=== PATIENT | male | born 1935 | race Caucasian/White ===

== ENCOUNTER 2020-01-17 10:06 | Inpatient (IN) | payer MEDICARE ==
--- NOTE | 2020-01-17 15:02 | HP ---
HISTORY OF PRESENT ILLNESS: Darío is an 84-year-old gentleman who underwent a left total hip replacement on the 01/[address] Oreilly at the [facility]. He states that surgery went well. He does not have any complications status post surgery. He states he has been up ambulating, going to the bathroom without any difficulty with ambulation. He states he has a little bit of discomfort to the incision site. Otherwise, he has not noticed any drainage. No increased warmth to that side. Overall, he states he is feeling well. PAST MEDICAL HISTORY: 1. History of actinic keratoses. 2. Arthritis. 3. Bradycardia. 4. Coronary artery disease. 5. Hyperlipidemia. 6. Hypertension. 7. Knee osteoarthritis. 8. Left hip osteoarthritis. 9. Prostatic hypertrophy. 10.Type 2 diabetes. PAST SURGICAL HISTORY: 1. Appendectomy. 2. Cardiac catheterization with stent placement. 3. Cholecystectomy. 4. Pacemaker insertion. 5. Stomach surgery. 6. Total hip replacement. SOCIAL HISTORY: The patient resides in [place], [place] with his . He is retired. He is a nonsmoker. FAMILY HISTORY: Noncontributory. REVIEW OF SYSTEMS: Patient denies any headaches. No fevers. Does state chills once in a while. No nausea. No vomiting. No shortness of breath. No chest pain. No palpitations. No belly pain. States last bowel movement was 3 days ago. Denies any abdominal discomfort. He states he is still passing gas without any complications. No urinary complaints presently. PHYSICAL EXAMINATION: VITAL SIGNS: Blood pressure is 136/78, 98% on room air, pulse is 70, respirations 20, and temperature 99. GENERAL: A pleasant, cooperative male, who is sitting in a chair, does not really appear to be in any acute distress nor acutely ill. HEENT: Grossly unremarkable. Head is normocephalic and atraumatic. Eyes clear. Conjunctivae are clear. Nasal mucosa is pink and moist. Speech was fluent. NECK: Supple. Trachea is midline. LUNGS: Clear to auscultation. I do not hear any adventitious sounds. CARDIAC: Regular rate, regular rhythm. No murmurs are noted. ABDOMEN: Soft. Bowel sounds are present. Normoactive. No organomegaly. No guarding or rigidity. EXTREMITIES: Examination of the left hip, does have a bandage in place. However, I do not feel any increase in warmth. No erythema is present. No drainage is present. Mild tenderness with palpation along the incision line. Pedal pulses are present and equal bilaterally. No pedal edema is noted. PSYCHIATRIC: He is alert and oriented to person, place, and time. ASSESSMENT: STATUS POST LEFT HIP REPLACEMENT. PLAN: The patient [facility] be [facility]. We will go ahead and get PT. We did start Flexeril 10 mg t.i.d. as needed for muscle spasms. We will give him docusate sodium 100 mg twice daily to help with bowel movements. Ferrous sulfate 325 mg p.o. daily and Percocet 5/325, 1 to 2 tablets every 4 to 6 hours as needed. We will put him on Lovenox as he is high risk. PT again is to evaluate and treat at this time. The patient is in complete agreement. BRAULIO/CHAS /[id number]
[2020-01-17] MEDS: Enoxaparin 30 MG/0.3 ML Syringe SUBCUT SCH (15:24)
[2020-01-17] MEDS: metFORMIN 500 MG Tab PO SCH (17:03)
[2020-01-17] MEDS: Docusate Sodium 100 MG Cap PO SCH (19:15)
[2020-01-17] MEDS: Acetaminophen/oxyCODONE 325-5 MG Tab PO PRN (19:15)
[2020-01-18] MEDS: Acetaminophen/oxyCODONE 325-5 MG Tab PO PRN ×3 (02:55→18:27)
[2020-01-18] MEDS: metFORMIN 500 MG Tab PO SCH ×2 (07:42→17:57)
[2020-01-18] MEDS: Aspirin 81 MG Tab.Chew PO SCH (07:43)
[2020-01-18] MEDS: Ferrous Sulfate 324 MG Tab.EC PO SCH (07:43)
[2020-01-18] MEDS: Hydrochlorothiazide 25 MG Tab PO SCH (07:44)
[2020-01-18] MEDS: atorvaSTATin 20 MG Tab PO SCH (07:44)
[2020-01-18] MEDS: amLODIPine 10 MG Tab PO SCH (07:44)
[2020-01-18] MEDS: Docusate Sodium 100 MG Cap PO SCH ×2 (07:45→20:05)
[2020-01-18] MEDS ORDERED: Non-Formulary Medication 1 Each (Potassium Gluconate [Potassium] 99 MG) PO SCH (08:00)
[2020-01-18] MEDS: Enoxaparin 30 MG/0.3 ML Syringe SUBCUT SCH (13:20)
[2020-01-19] MEDS: Acetaminophen/oxyCODONE 325-5 MG Tab PO PRN ×4 (01:38→22:15)
[2020-01-19] MEDS: Aspirin 81 MG Tab.Chew PO SCH (07:26)
[2020-01-19] MEDS: amLODIPine 10 MG Tab PO SCH (07:27)
[2020-01-19] MEDS: metFORMIN 500 MG Tab PO SCH ×2 (07:27→17:05)
[2020-01-19] MEDS: Ferrous Sulfate 324 MG Tab.EC PO SCH (07:27)
[2020-01-19] MEDS: Hydrochlorothiazide 25 MG Tab PO SCH (07:28)
[2020-01-19] MEDS: Docusate Sodium 100 MG Cap PO SCH ×2 (07:28→20:27)
[2020-01-19] MEDS: atorvaSTATin 20 MG Tab PO SCH (07:28)
[2020-01-19] MEDS ORDERED: Magnesium Citrate Solution 296 ML Bottle PO ONE (09:43)
[2020-01-19] MEDS ORDERED: Polyethylene Glycol 3350 Powder 17 GM Packet PO PRN (09:57)
[2020-01-19] MEDS: Enoxaparin 30 MG/0.3 ML Syringe SUBCUT SCH (13:22)
[2020-01-19] MEDS: Cyclobenzaprine 10 MG Tab PO PRN (22:15)
[2020-01-20] MEDS: metFORMIN 500 MG Tab PO SCH ×2 (07:11→17:01)
[2020-01-20] MEDS: Aspirin 81 MG Tab.Chew PO SCH (07:12)
[2020-01-20] MEDS: Ferrous Sulfate 324 MG Tab.EC PO SCH (07:12)
[2020-01-20] MEDS: amLODIPine 10 MG Tab PO SCH (07:12)
[2020-01-20] MEDS: Hydrochlorothiazide 25 MG Tab PO SCH (07:12)
[2020-01-20] MEDS: Docusate Sodium 100 MG Cap PO SCH ×2 (07:12→19:34)
[2020-01-20] MEDS: atorvaSTATin 20 MG Tab PO SCH (07:12)
[2020-01-20] MEDS: Acetaminophen/oxyCODONE 325-5 MG Tab PO PRN ×2 (12:32→21:24)
[2020-01-20] MEDS: Cyclobenzaprine 10 MG Tab PO PRN ×2 (12:32→21:24)
[2020-01-20] MEDS: Enoxaparin 30 MG/0.3 ML Syringe SUBCUT SCH (12:32)
[2020-01-21] MEDS: Acetaminophen/oxyCODONE 325-5 MG Tab PO PRN ×3 (05:11→19:49)
[2020-01-21] MEDS: metFORMIN 500 MG Tab PO SCH ×2 (09:16→17:32)
[2020-01-21] MEDS: amLODIPine 10 MG Tab PO SCH (09:17)
[2020-01-21] MEDS: Hydrochlorothiazide 25 MG Tab PO SCH (09:17)
[2020-01-21] MEDS: Aspirin 81 MG Tab.Chew PO SCH (09:17)
[2020-01-21] MEDS: Docusate Sodium 100 MG Cap PO SCH ×2 (09:17→19:49)
[2020-01-21] MEDS: Ferrous Sulfate 324 MG Tab.EC PO SCH (09:17)
[2020-01-21] MEDS: atorvaSTATin 20 MG Tab PO SCH (09:17)
[2020-01-21] MEDS: Enoxaparin 30 MG/0.3 ML Syringe SUBCUT SCH (13:34)
[2020-01-21] MEDS: Cyclobenzaprine 10 MG Tab PO PRN (19:50)
[2020-01-22] MEDS: Hydrochlorothiazide 25 MG Tab PO SCH (07:50)
[2020-01-22] MEDS: Ferrous Sulfate 324 MG Tab.EC PO SCH (07:50)
[2020-01-22] MEDS: atorvaSTATin 20 MG Tab PO SCH (07:50)
[2020-01-22] MEDS: Docusate Sodium 100 MG Cap PO SCH ×2 (07:50→19:35)
[2020-01-22] MEDS: amLODIPine 10 MG Tab PO SCH (07:50)
[2020-01-22] MEDS: Aspirin 81 MG Tab.Chew PO SCH (07:51)
[2020-01-22] MEDS: metFORMIN 500 MG Tab PO SCH ×2 (07:51→17:02)
[2020-01-22] MEDS: Enoxaparin 40 MG/0.4 ML Syringe SUBCUT SCH (12:26)
[2020-01-22] MEDS: Acetaminophen/oxyCODONE 325-5 MG Tab PO PRN ×2 (12:28→19:34)
[2020-01-23] MEDS: Hydrochlorothiazide 25 MG Tab PO SCH (08:04)
[2020-01-23] MEDS: amLODIPine 10 MG Tab PO SCH (08:05)
[2020-01-23] MEDS: metFORMIN 500 MG Tab PO SCH ×2 (08:05→17:26)
[2020-01-23] MEDS: Docusate Sodium 100 MG Cap PO SCH ×2 (08:05→19:19)
[2020-01-23] MEDS: Ferrous Sulfate 324 MG Tab.EC PO SCH (08:05)
[2020-01-23] MEDS: Aspirin 81 MG Tab.Chew PO SCH (08:06)
[2020-01-23] MEDS: atorvaSTATin 20 MG Tab PO SCH (08:06)
[2020-01-23] MEDS: Enoxaparin 40 MG/0.4 ML Syringe SUBCUT SCH (11:14)
[2020-01-23] MEDS: Acetaminophen/oxyCODONE 325-5 MG Tab PO PRN ×2 (11:14→21:54)
[2020-01-24] MEDS: metFORMIN 500 MG Tab PO SCH ×2 (07:54→17:29)
[2020-01-24] MEDS: Docusate Sodium 100 MG Cap PO SCH ×2 (07:55→19:16)
[2020-01-24] MEDS: atorvaSTATin 20 MG Tab PO SCH (07:55)
[2020-01-24] MEDS: Ferrous Sulfate 324 MG Tab.EC PO SCH (07:55)
[2020-01-24] MEDS: Hydrochlorothiazide 25 MG Tab PO SCH (07:56)
[2020-01-24] MEDS: amLODIPine 10 MG Tab PO SCH (07:56)
[2020-01-24] MEDS: Aspirin 81 MG Tab.Chew PO SCH (07:56)
[2020-01-24] MEDS: Lisinopril 5 MG Tab PO SCH (09:53)
[2020-01-24] MEDS: Acetaminophen/oxyCODONE 325-5 MG Tab PO PRN (10:42)
[2020-01-24] MEDS: Enoxaparin 40 MG/0.4 ML Syringe SUBCUT SCH (12:28)
[2020-01-25] MEDS: Lisinopril 5 MG Tab PO SCH (07:55)
[2020-01-25] MEDS: Ferrous Sulfate 324 MG Tab.EC PO SCH (07:55)
[2020-01-25] MEDS: metFORMIN 500 MG Tab PO SCH ×2 (07:55→17:10)
[2020-01-25] MEDS: amLODIPine 10 MG Tab PO SCH (07:55)
[2020-01-25] MEDS: Aspirin 81 MG Tab.Chew PO SCH (07:55)
[2020-01-25] MEDS: Docusate Sodium 100 MG Cap PO SCH ×2 (07:56→19:04)
[2020-01-25] MEDS: Hydrochlorothiazide 25 MG Tab PO SCH (07:56)
[2020-01-25] MEDS: atorvaSTATin 20 MG Tab PO SCH (07:56)
[2020-01-25] MEDS: Acetaminophen/oxyCODONE 325-5 MG Tab PO PRN (07:58)
[2020-01-25] MEDS: Enoxaparin 40 MG/0.4 ML Syringe SUBCUT SCH (11:58)
[2020-01-26] MEDS: amLODIPine 10 MG Tab PO SCH (08:05)
[2020-01-26] MEDS: Aspirin 81 MG Tab.Chew PO SCH (08:06)
[2020-01-26] MEDS: metFORMIN 500 MG Tab PO SCH ×2 (08:06→18:18)
[2020-01-26] MEDS: Hydrochlorothiazide 25 MG Tab PO SCH (08:06)
[2020-01-26] MEDS: Lisinopril 5 MG Tab PO SCH (08:06)
[2020-01-26] MEDS: atorvaSTATin 20 MG Tab PO SCH (08:06)
[2020-01-26] MEDS: Ferrous Sulfate 324 MG Tab.EC PO SCH (08:06)
[2020-01-26] MEDS: Docusate Sodium 100 MG Cap PO SCH ×2 (08:06→20:03)
[2020-01-26] MEDS: Enoxaparin 40 MG/0.4 ML Syringe SUBCUT SCH (13:00)
[2020-01-27] MEDS: Lisinopril 5 MG Tab PO SCH (08:25)
[2020-01-27] MEDS: Aspirin 81 MG Tab.Chew PO SCH (08:25)
[2020-01-27] MEDS: Docusate Sodium 100 MG Cap PO SCH ×2 (08:25→20:06)
[2020-01-27] MEDS: amLODIPine 10 MG Tab PO SCH (08:26)
[2020-01-27] MEDS: metFORMIN 500 MG Tab PO SCH ×2 (08:26→17:27)
[2020-01-27] MEDS: Hydrochlorothiazide 25 MG Tab PO SCH (08:26)
[2020-01-27] MEDS: atorvaSTATin 20 MG Tab PO SCH (08:26)
[2020-01-27] MEDS: Ferrous Sulfate 324 MG Tab.EC PO SCH (08:26)
[2020-01-27] MEDS: Acetaminophen/oxyCODONE 325-5 MG Tab PO PRN (08:27)
[2020-01-27] MEDS: Enoxaparin 40 MG/0.4 ML Syringe SUBCUT SCH (12:48)
[2020-01-28] MEDS: Hydrochlorothiazide 25 MG Tab PO SCH (08:07)
[2020-01-28] MEDS: Ferrous Sulfate 324 MG Tab.EC PO SCH (08:07)
[2020-01-28] MEDS: Aspirin 81 MG Tab.Chew PO SCH (08:07)
[2020-01-28] MEDS: metFORMIN 500 MG Tab PO SCH ×2 (08:07→16:52)
[2020-01-28] MEDS: atorvaSTATin 20 MG Tab PO SCH (08:07)
[2020-01-28] MEDS: Docusate Sodium 100 MG Cap PO SCH ×2 (08:07→19:41)
[2020-01-28] MEDS: amLODIPine 10 MG Tab PO SCH (08:08)
[2020-01-28] MEDS: Lisinopril 5 MG Tab PO SCH (08:11)
[2020-01-28] MEDS: Enoxaparin 40 MG/0.4 ML Syringe SUBCUT SCH (13:40)
[2020-01-29] MEDS: Aspirin 81 MG Tab.Chew PO SCH (07:44)
[2020-01-29] MEDS: Docusate Sodium 100 MG Cap PO SCH (07:44)
[2020-01-29] MEDS: amLODIPine 10 MG Tab PO SCH (07:44)
[2020-01-29] MEDS: metFORMIN 500 MG Tab PO SCH (07:45)
[2020-01-29] MEDS: atorvaSTATin 20 MG Tab PO SCH (07:45)
[2020-01-29] MEDS: Hydrochlorothiazide 25 MG Tab PO SCH (07:45)
[2020-01-29] MEDS: Ferrous Sulfate 324 MG Tab.EC PO SCH (07:45)
[2020-01-29 07:48] VITALS: BP 166/67; PULSE 62
[2020-01-29] MEDS ORDERED: Lisinopril 10 MG Tab PO SCH (08:00)
--- NOTE | 2020-01-29 09:11 | PCM.DCSUM1 ---
Discharge Summary - Hospital Course Free Text/Narrative:: Daíro is an 84 year old male admitted to swing bed following a total hip replacement by Dr. Oreilly at [facility] on 01-14-2020. Patient had weakness and mild pain following surgery. Up and ambulating, going to the bathroom. No complications from surgery. Incision clean and dry, no redness or warmth. Started on iron replacement and stools softeners. Percocet for pain. Flexeril for muscle spasms. Physical therapy for strengthening and conditioning. Diagnosis: Stroke: No Modified Dawes Scale: No Symptoms at All Modified Dawes Scale Score: 0 - Discharge Data Discharge Date: 01/29/20 Discharge Disposition: Home, W Home Health Agency Condition: Good - Referral to Home Health Date of Face to Face Encounter: 01/29/20 Reason for Homebound Status: Unable to drive due to recent orthopaedic surgery Primary Care Physician: Adan Ayon MD Skilled Need: Nursing to monitor pain level, blood pressure and med compliance. Was recently started on Lisinopril for blood pressure control. Physical therapy and occupational therapy for strengthening, ambulation and ADLs. - Patient Summary/Data Complications: none Consults: Consultations 01/17/20 13:24 PT Evaluation and Treatment [CONS] Routine Hospital Course: Patient is doing well. Ambulating well with walker. Tolerating pain well. Incision clean and dry. Blood pressure has been high during stay. Lisinopril was added, will need ongoing monitoring of blood pressure per home health. Home Health to follow. Follow up with Dr. Ayon in 2 weeks. - Patient Instructions Diet: Usual Diet as Tolerated Activity: As Tolerated - Discharge Plan *PRESCRIPTION DRUG MONITORING PROGRAM REVIEWED*: No *COPY OF PRESCRIPTION DRUG MONITORING REPORT IN PATIENT PARISH: No Prescriptions/Med Rec: Ferrous Sulfate 324 mg PO WITHBREAKFAST #30 tab.ec polyethylene glycoL 3350 [MiraLAX] 17 gm PO DAILY PRN #30 packet PRN Reason: Constipation Home Medications: Home Meds Cranberry Conc/C/Bacill Coag [Cranberry Tablet] 2 each PO DAILY 08/20/13 [History] Ubidecarenone [Coq-10] 100 mg PO DAILY 08/20/13 [History] amLODIPine Besylate [Amlodipine Besylate] 10 mg PO DAILY 08/20/13 [History] metFORMIN [Glucophage] 1,000 mg PO BID 08/20/13 [History] Aspirin 81 mg PO DAILY 05/20/16 [History] atorvaSTATin Calcium [Atorvastatin Calcium] 20 mg PO DAILY 05/20/16 [History] Cholecalciferol (Vitamin D3) [Vitamin D] 1,000 units PO DAILY 01/03/20 [History] Potassium Gluconate [Potassium] 99 mg PO DAILY 01/03/20 [History] hydroCHLOROthiazide [Hydrochlorothiazide] 25 mg PO DAILY 01/03/20 [History] Ferrous Sulfate 324 mg PO WITHBREAKFAST #30 tab.ec 01/29/20 [Rx] polyethylene glycoL 3350 [MiraLAX] 17 gm PO DAILY PRN #30 packet 01/29/20 [Rx] Referrals: Adan Ayon MD [Primary Care Provider] - (Follow up with Dr. Ayon in 2 weeks.) - Discharge Summary/Plan Comment DC Time >30 min.: No - General Info Date of Service: 01/29/20 Admission Dx/Problem (Free Text: S/P Total Hip Replacement Functional Status: Reports: Pain Controlled, Tolerating Diet, Ambulating, Urinating - Review of Systems General: Reports: Weakness HEENT: Reports: No Symptoms Pulmonary: Denies: Shortness of Breath, Cough Cardiovascular: Denies: Chest Pain Gastrointestinal: Denies: Abdominal Pain, Nausea, Vomiting Genitourinary: Reports: No Symptoms Musculoskeletal: Reports: Joint Pain Neurological: Reports: Weakness - Patient Data Vitals - Most Recent: Last Vital Signs Temp 99 F 01/29/20 07:47 Pulse 62 01/29/20 07:47 Resp 18 01/29/20 07:47 BP 166/67 H 01/29/20 07:47 Pulse Ox 96 01/29/20 07:47 Weight - Most Recent: 179 lb Med Orders - Current: Current Medications Amlodipine Besylate (Norvasc) 10 mg PO DAILY [facility] Last Admin: 01/29/20 07:44 Dose: 10 mg Documented by: Aspirin (Aspirin) 81 mg PO DAILY [facility] Last Admin: 01/29/20 07:44 Dose: 81 mg Documented by: Atorvastatin Calcium (Lipitor) 20 mg PO DAILY [facility] Last Admin: 01/29/20 07:45 Dose: 20 mg Documented by: Cyclobenzaprine HCl (Flexeril) 10 mg PO TID PRN PRN Reason: Spasms Last Admin: 01/21/20 19:50 Dose: 10 mg Documented by: Docusate Sodium (Colace) 100 mg PO BID [facility] Last Admin: 01/29/20 07:44 Dose: 100 mg Documented by: Enoxaparin Sodium (Lovenox) 40 mg SUBCUT DAILY@1200 [facility] Last Admin: 01/28/20 13:40 Dose: 40 mg Documented by: Ferrous Sulfate (Ferrous Sulfate) 324 mg PO WITHBREAKFAST [facility] Last Admin: 01/29/20 07:45 Dose: 324 mg Documented by: Hydrochlorothiazide (Hydrochlorothiazide) 25 mg PO DAILY [facility] Last Admin: 01/29/20 07:45 Dose: 25 mg Documented by: Lisinopril (Prinivil) 10 mg PO DAILY [facility] Last Admin: 01/29/20 07:45 Dose: 10 mg Documented by: Metformin HCl (Glucophage) 1,000 mg PO BIDMEALS [facility] Last Admin: 01/29/20 07:45 Dose: 1,000 mg Documented by: Oxycodone/Acetaminophen (Percocet 325-5 Mg) 1 - 2 tab PO Q4H PRN PRN Reason: Pain (severe 7-10) Last Admin: 01/27/20 08:27 Dose: 1 tab Documented by: Polyethylene Glycol (Miralax) 17 gm PO DAILY PRN PRN Reason: Constipation Discontinued Medications Enoxaparin Sodium (Lovenox) 30 mg SUBCUT Q24H [facility] Last Admin: 01/21/20 13:34 Dose: 30 mg Documented by: Lisinopril (Prinivil) 5 mg PO DAILY [facility] Last Admin: 01/28/20 08:11 Dose: 5 mg Documented by: Magnesium Citrate (Citrate Of Magnesia) 296 ml PO ONETIME ONE Stop: 01/19/20 09:44 Last Admin: 01/19/20 10:06 Dose: 296 ml Documented by: Non-Formulary Medication (Potassium Gluconate [Potassium]) 99 mg PO DAILY [facility] Last Admin: 01/18/20 09:52 Dose: Not Given Documented by: - Exam General: Reports: Alert, Oriented HEENT: Reports: Mucous Membr. Moist/[place] Neck: Reports: Supple Lungs: Reports: Clear to Auscultation, Normal Respiratory Effort Cardiovascular: Reports: Regular Rate, Regular Rhythm GI/Abdominal Exam: Normal Bowel Sounds, Soft, Non-Tender Skin: Reports: Warm, Dry Wound/Incisions: Reports: Healing Well, No Drainage Neurological: Reports: No New Focal Deficit
== END 2020-01-29 10:10 | disposition home health service (06) | DRG 561 ==
LOC: UNDOADMIN 10:51 → CC.MS 10:51
PROVIDERS: ADMIT Family Medicine; ATTEND Family Medicine
DX: Z47.1 Aftercare following joint replacement surgery (principal); Z96.642 Presence of left artificial hip joint; I25.10 Atherosclerotic heart disease of native coronary artery without angina pectoris; E78.5 Hyperlipidemia, unspecified; I10 Essential (primary) hypertension; M17.9 Osteoarthritis of knee, unspecified; N40.0 Benign prostatic hyperplasia without lower urinary tract symptoms; E11.9 Type 2 diabetes mellitus without complications; Z90.49 Acquired absence of other specified parts of digestive tract; Z95.0 Presence of cardiac pacemaker
CPT/HCPCS: 82962; 97110-GP; 97161-GP; 97530-GP; A9270-GY; J1650

== ENCOUNTER 2020-12-22 07:35 | Inpatient (IN) | payer MEDICARE, MEDICAID, OTHER ==
[2020-12-22 08:12] LABS: PTT,PARTIAL THROMBOPLSTIN TIME 24.1 SEC (23.2-32.3)
[2020-12-22 08:15] LABS: CHLORIDE,CL 101 mEq/L (98-106); SODIUM,NA 141 mEq/L (136-145)
[2020-12-22] MEDS ORDERED: Iopamidol 755 Mg/ML 100 ML Bottle IVPUSH ONE (09:17)
--- NOTE | 2020-12-22 09:41 | EDM.PDOC ---
ED HPI GENERAL MEDICAL PROBLEM - General Chief Complaint: Chest Pain Stated Complaint: LAMAR Time Seen by Provider: 12/22/20 08:01 Source of Information: Reports: Patient, RN History Limitations: Reports: No Limitations - History of Present Illness INITIAL COMMENTS - FREE TEXT/NARRATIVE: Presents per EMS with complaints of left sided chest pain and head not feeling right. He woke to use the BR during the night and then noted left sided chest aching. It did not radiate anywhere. He also noted that "my head didn't feel right" He feels "dizzy" when he lifts his head off the bed. Denies room spinning but states that it is not right. He denies double or blurred vision. When arriving he was anxious and his BP was elevated. This did settle down to 154/80's after laying n bed for a short time. He denies any nausea, vomiting or sweating. He responds "I'm not sure" when asked about SOB. He states that he has been coughing for over a week and recently finished z-socorro that he feels did nothing. He has stuffed up nose. He denies a fever and states that he never gets one even when he is very sick. He has not had any edema. He denies any GI issues. Onset: Today Location: Reports: Head, Chest. Denies: Abdomen Worsens with: Reports: Movement Associated Symptoms: Reports: Chest Pain. Denies: Fever/Chills Forehead Pain Score (Numeric/FACES): 7 Left Upper Anterior Chest Pain Score (Numeric/FACES): 7 - Related Data Allergies Allergy/AdvReac Type Severity Reaction Status Date / Time doxycycline Allergy Stomach Verified 12/22/20 07:56 Ache montelukast sodium Allergy Diarrhea Verified 12/22/20 07:56 [From Singulair] sulfamethoxazole Allergy Stomach Verified 12/22/20 07:56 [From Bactrim] Upset trimethoprim [From Bactrim] Allergy Stomach Verified 12/22/20 07:56 Upset Home Meds: Home Meds Cranberry Conc/C/Bacill Coag [Cranberry Tablet] 2 each PO DAILY 08/20/13 [History] Ubidecarenone [Coq-10] 100 mg PO DAILY 08/20/13 [History] amLODIPine Besylate [Amlodipine Besylate] 10 mg PO DAILY 08/20/13 [History] metFORMIN [Glucophage] 1,000 mg PO BID 08/20/13 [History] Aspirin 81 mg PO BID 05/20/16 [History] atorvaSTATin Calcium [Atorvastatin Calcium] 20 mg PO DAILY 05/20/16 [History] Cholecalciferol (Vitamin D3) [Vitamin D] 1,000 units PO DAILY 01/03/20 [History] Potassium Gluconate [Potassium] 99 mg PO DAILY 01/03/20 [History] hydroCHLOROthiazide [Hydrochlorothiazide] 25 mg PO DAILY 01/03/20 [History] LORazepam [Ativan] 1 mg PO DAILY 12/22/20 [History] Losartan Potassium 100 mg PO DAILY 12/22/20 [History] Metoprolol Succinate [Toprol XL] 25 mg PO DAILY 12/22/20 [History] Past Medical History Cardiovascular History: Reports: High Cholesterol, Hypertension, Pacemaker Endocrine/Metabolic History: Reports: Diabetes, Type II - Past Surgical History GI Surgical History: Reports: Appendectomy, Cholecystectomy Social & Family History - Tobacco Use Tobacco Use Status *Q: Never Tobacco User - Caffeine Use Caffeine Use: Reports: Coffee - Living Situation & Occupation Living situation: Reports: , with Spouse Occupation: Retired ED ROS GENERAL - Review of Systems Review Of Systems: See Below Constitutional: Reports: Weakness. Denies: Fever, Chills HEENT: Reports: No Symptoms Respiratory: Reports: Cough, Sputum Cardiovascular: Reports: Chest Pain, Lightheadedness. Denies: Edema GI/Abdominal: Reports: No Symptoms : Reports: No Symptoms Musculoskeletal: Reports: No Symptoms Skin: Reports: No Symptoms Neurological: Reports: Dizziness, Headache, Weakness Psychiatric: Reports: Anxiety ED EXAM, GENERAL - Physical Exam Exam: See Below Exam Limited By: No Limitations General Appearance: Alert, WD/WN, Anxious, Mild Distress Eye Exam: Bilateral Eye: PERRL Ears: Normal External Exam, Normal Canal, Normal TMs Nose: Normal Inspection Throat/Mouth: Normal Inspection, Normal Oropharynx Head: Atraumatic, Normocephalic Neck: Normal Inspection, Supple, Non-Tender, Full Range of Motion Respiratory/Chest: No Respiratory Distress, Decreased Breath Sounds. No: Rhonchi, Wheezing Cardiovascular: Regular Rate, Rhythm, No Edema GI/Abdominal: Normal Bowel Sounds, Soft, Non-Tender Extremities: Normal Inspection, No Pedal Edema, Normal Capillary Refill Neurological: Alert, Oriented Skin Exam: Warm, Dry, Intact Course - Vital Signs Last Recorded V/S: Last Vital Signs Temp 99.5 F 12/22/20 15:59 Pulse 64 12/22/20 15:59 Resp 17 12/22/20 15:59 BP 184/78 H 12/22/20 15:59 Pulse Ox 94 L 12/22/20 15:59 - Orders/Labs/Meds Orders: Active Orders 24 hr Category Date Time Status Ang Chest [CT] Stat Exams 12/22/20 09:03 Taken Chest 1V Frontal [CR] Stat Exams 12/22/20 08:09 Taken Head wo Cont [CT] Stat Exams 12/22/20 08:08 Taken Medication Orders Amlodipine Besylate (Amlodipine 10 Mg Tab) 10 mg PO DAILY [facility] Last Admin: 12/22/20 12:36 Dose: 10 mg Documented by: BREA Aspirin (Aspirin 81 Mg Tab.Ec) 81 mg PO BID [facility] Last Admin: 12/22/20 19:29 Dose: 81 mg Documented by: GUILLERMINA Atorvastatin Calcium (Atorvastatin 20 Mg Tab) 20 mg PO BEDTIME [facility] Last Admin: 12/22/20 19:29 Dose: 20 mg Documented by: GUILLERMINA Ceftriaxone Sodium (Ceftriaxone 1 Gm Vial) 1 gm IVPUSH Q24H [facility] Last Admin: 12/22/20 12:10 Dose: 1 gm Documented by: BREA Enoxaparin Sodium (Enoxaparin 30 Mg/0.3 Ml Syringe) 30 mg SUBCUT Q24H [facility] Hydrochlorothiazide (Hydrochlorothiazide 25 Mg Tab) 25 mg PO DAILY [facility] Last Admin: 12/22/20 12:35 Dose: 25 mg Documented by: BREA Sodium Chloride (Normal Saline) 1,000 mls @ 100 mls/hr IV ASDIRECTED [facility] Last Admin: 12/22/20 12:05 Dose: 100 mls/hr Documented by: BREA Lorazepam (Lorazepam 0.5 Mg Tab) 1 mg PO DAILY [facility] Last Admin: 12/22/20 12:36 Dose: 1 mg Documented by: BREA Losartan Potassium (Losartan 100 Mg Tab) 100 mg PO DAILY [facility] Last Admin: 12/22/20 12:35 Dose: 100 mg Documented by: BREA Metoprolol Succinate (Metoprolol Succinate 25 Mg Tab.Er) 25 mg PO DAILY [facility] Last Admin: 12/22/20 12:35 Dose: 25 mg Documented by: BREA Pantoprazole Sodium (Pantoprazole 40 Mg Vial) 40 mg IV Q12H [facility] Potassium (Potassium Gluconate (99 Mg) 2 Meq Tab) 2 meq PO DAILY [facility] Last Admin: 12/22/20 12:35 Dose: 2 meq Documented by: BREA Sodium Chloride (Sodium Chloride 0.9% 10 Ml Syringe) 10 ml FLUSH ASDIRECTED PRN PRN Reason: Keep Vein Open Labs: Laboratory Tests 12/22/20 12/22/20 12/22/20 Range/Units 07:53 08:00 08:00 WBC 8.3 (4.0-11.0) 10^3/uL RBC 4.13 L (4.50-6.00) x10^6/uL Hgb 13.3 L (14.0-18.0) g/dL Hct 37.2 L (42.0-52.0) % MCV 90.1 (83.0-97.0) fL MCH 32.2 H (27.0-32.0) pg MCHC 35.8 (32.0-36.0) g/dL RDW Coeff of Ximena 12.3 (11.0-15.0) % Plt Count 312 (150-400) 10^3/uL Immature Gran % (Auto) 0.7 (0.0-4.9) % Neut % (Auto) 62.3 (41-71) % Lymph % (Auto) 27.0 (24-44) % Andrew % (Auto) 6.7 (0-10) % Eos % (Auto) 2.7 (0-6) % Baso % (Auto) 0.6 (0-1) % Neut # (Auto) 5.17 (1.80-8.00) x10^3/uL Lymph # (Auto) 2.24 (0.60-5.00) 10^3/uL Andrew # (Auto) 0.56 (0.00-1.50) 10^3/uL Eos # (Auto) 0.22 (0.00-1.50) 10^3/uL Baso # (Auto) 0.05 (0.00-0.50) 10^3/uL Immature Gran # (Auto) 0.06 (0.00-0.49) 10^3/uL ESR 38 H (0-15) mm/hr PT 10.4 (9.7-12.3) SEC INR 0.95 (0.92-1.18) APTT 24.1 (23.2-32.3) SEC D-Dimer, Quantitative (0.00-0.50) Sodium 141 (136-145) mEq/L Potassium 3.4 L (3.5-5.0) mEq/L Chloride 101 (98-106) mEq/L Carbon Dioxide 25 (21-32) mmol/L BUN 23 H (7-18) mg/dL Creatinine 1.6 H (0.7-1.3) mg/dL Est Cr Clr Drug Dosing 31.40 mL/min Estimated GFR (MDRD) 41 L (>=60) mL/min Glucose 124 H D (75-99) mg/dL Calcium 9.4 (8.4-10.1) mg/dL Magnesium 1.7 L (1.8-2.4) mg/dL Total Bilirubin 0.7 (0.0-1.0) mg/dL AST 17 (15-37) U/L ALT 13 (12-78) U/L Alkaline Phosphatase 81 (46-116) U/L Lactate Dehydrogenase 182 (100-190) U/L Creatine Kinase 81 (35-232) U/L Troponin I < 0.017 (0.00-0.06) ng/mL Total Protein 7.8 (6.4-8.2) g/dL Albumin 3.8 (3.4-5.0) g/dL Lipase 114 (73-393) U/L 12/22/20 Range/Units 08:09 WBC (4.0-11.0) 10^3/uL RBC (4.50-6.00) x10^6/uL Hgb (14.0-18.0) g/dL Hct (42.0-52.0) % MCV (83.0-97.0) fL MCH (27.0-32.0) pg MCHC (32.0-36.0) g/dL RDW Coeff of Ximena (11.0-15.0) % Plt Count (150-400) 10^3/uL Immature Gran % (Auto) (0.0-4.9) % Neut % (Auto) (41-71) % Lymph % (Auto) (24-44) % Andrew % (Auto) (0-10) % Eos % (Auto) (0-6) % Baso % (Auto) (0-1) % Neut # (Auto) (1.80-8.00) x10^3/uL Lymph # (Auto) (0.60-5.00) 10^3/uL Andrew # (Auto) (0.00-1.50) 10^3/uL Eos # (Auto) (0.00-1.50) 10^3/uL Baso # (Auto) (0.00-0.50) 10^3/uL Immature Gran # (Auto) (0.00-0.49) 10^3/uL ESR (0-15) mm/hr PT (9.7-12.3) SEC INR (0.92-1.18) APTT (23.2-32.3) SEC D-Dimer, Quantitative 0.68 H (0.00-0.50) Sodium (136-145) mEq/L Potassium (3.5-5.0) mEq/L Chloride (98-106) mEq/L Carbon Dioxide (21-32) mmol/L BUN (7-18) mg/dL Creatinine (0.7-1.3) mg/dL Est Cr Clr Drug Dosing mL/min Estimated GFR (MDRD) (>=60) mL/min Glucose (75-99) mg/dL Calcium (8.4-10.1) mg/dL Magnesium (1.8-2.4) mg/dL Total Bilirubin (0.0-1.0) mg/dL AST (15-37) U/L ALT (12-78) U/L Alkaline Phosphatase (46-116) U/L Lactate Dehydrogenase (100-190) U/L Creatine Kinase (35-232) U/L Troponin I (0.00-0.06) ng/mL Total Protein (6.4-8.2) g/dL Albumin (3.4-5.0) g/dL Lipase (73-393) U/L Meds: Medications Generic Name Dose Route Start Last Admin Trade Name Freq PRN Reason Stop Dose Admin Amlodipine Besylate 10 mg 12/22/20 12:00 12/22/20 12:36 Amlodipine 10 Mg Tab PO 10 mg DAILY MARIA LUISA Administration Aspirin 81 mg 12/22/20 20:00 12/22/20 19:29 Aspirin 81 Mg Tab.Ec PO 81 mg BID MARIA LUISA Administration Atorvastatin Calcium 20 mg 12/22/20 20:00 12/22/20 19:29 Atorvastatin 20 Mg Tab PO 20 mg BEDTIME MARIA LUISA Administration Ceftriaxone Sodium 1 gm 12/22/20 12:00 12/22/20 12:10 Ceftriaxone 1 Gm Vial IVPUSH 1 gm Q24H MARIA LUISA Administration Enoxaparin Sodium 30 mg 12/23/20 20:00 Enoxaparin 30 Mg/0.3 Ml Syringe SUBCUT Q24H MARIA LUISA Hydrochlorothiazide 25 mg 12/22/20 12:00 12/22/20 12:35 Hydrochlorothiazide 25 Mg Tab PO 25 mg DAILY MARIA LUISA Administration Sodium Chloride 1,000 mls @ 100 mls/hr 12/22/20 12:00 12/22/20 12:05 Normal Saline IV 100 mls/hr ASDIRECTED MARIA LUISA Administration Lorazepam 1 mg 12/22/20 12:30 12/22/20 12:36 Lorazepam 0.5 Mg Tab PO 1 mg DAILY MARIA LUISA Administration Losartan Potassium 100 mg 12/22/20 12:00 12/22/20 12:35 Losartan 100 Mg Tab PO 100 mg DAILY MARIA LUISA Administration Metoprolol Succinate 25 mg 12/22/20 12:30 12/22/20 12:35 Metoprolol Succinate 25 Mg Tab.Er PO 25 mg DAILY [facility] LU[facility] Administration Pantoprazole Sodium 40 mg 12/23/20 08:00 Pantoprazole 40 Mg Vial IV Q12H MARIA LUISA Potassium 2 meq 12/22/20 12:15 12/22/20 12:35 Potassium Gluconate (99 Mg) 2 Meq Tab PO 2 meq DAILY MARIA LUISA Administration Sodium Chloride 10 ml 12/22/20 10:40 Sodium Chloride 0.9% 10 Ml Syringe FLUSH ASDIRECTED PRN Keep Vein Open Discontinued Medications Generic Name Dose Route Start Last Admin Trade Name Freq PRN Reason Stop Dose Admin Iopamidol 100 ml 12/22/20 09:17 12/22/20 09:30 Iopamidol 755 Mg/Ml 100 Ml Bottle IVPUSH 12/22/20 09:18 100 ml ONETIME ONE Administration Pantoprazole Sodium 40 mg 12/22/20 12:00 12/22/20 12:05 Pantoprazole 40 Mg Vial IVPUSH 12/22/20 12:01 40 mg ONETIME ONE Administration - Re-Assessments/Exams Free Text/Narrative Re-Assessment/Exam: 12/22/20 09:[address] Ayon and he will be admitted for chest pain rule out DE, renal insufficiency with mild dehydration. Will get Iv fluids and rocephin. will be on telemetry. Will hold his Metformin for [address] scan and push fluids for his kidneys. Will recheck tropinins later today and in the AM and monitor his kidney functions. Will need to monitor his BP closely. Departure - Departure Time of Disposition: 09:30 Disposition: Admitted As Inpatient 66 Condition: Fair Clinical Impression: Atypical chest pain, HTN, Benign hypertension, Acute renal insufficiency Sepsis Event Note (ED) - Evaluation Sepsis Screening Result: No Definite Risk - Focused Exam Vital Signs: Vital Signs Temp Pulse Resp BP Pulse Ox 12/22/20 10:25 98.9 F 60 17 176/73 H 98 12/22/20 09:04 68 23 H 150/65 H 100 12/22/20 08:46 64 20 152/66 H 99 12/22/20 08:25 67 21 H 147/68 H 100 12/22/20 08:05 97.7 F 63 19 192/88 H 100 - Problem List & Annotations (1) HTN, Benign hypertension SNOMED Code(s): 30764180 Code(s): I10 - ESSENTIAL (PRIMARY) HYPERTENSION Status: Acute Priority: High Current Visit: Yes (2) Acute renal insufficiency SNOMED Code(s): 710212845 Code(s): N28.9 - DISORDER OF KIDNEY AND URETER, UNSPECIFIED Status: Acute Priority: High Current Visit: Yes (3) Atypical chest pain SNOMED Code(s): 100304940 Code(s): R07.89 - OTHER CHEST PAIN Status: Acute Priority: Medium Current Visit: Yes - Problem List Review Problem List Initiated/Reviewed/Updated: Yes - My Orders Last 24 Hours: My Active Orders 12/22/20 08:08 Head wo Cont [CT] Stat 12/22/20 08:09 Chest 1V Frontal [CR] Stat 12/22/20 09:03 Ang Chest [CT] Stat - Assessment/Plan Admission H&P: Please use this note as an admission H&P Last 24 Hours: My Active Orders 12/22/20 08:08 Head wo Cont [CT] Stat 12/22/20 08:09 Chest 1V Frontal [CR] Stat 12/22/20 09:03 Ang Chest [CT] Stat
[2020-12-22] MEDS ORDERED: Sodium Chloride 0.9% 10 ML Syringe FLUSH PRN (10:40)
[2020-12-22] MEDS ORDERED: Pantoprazole 40 MG Vial IVPUSH ONE (12:00)
[2020-12-22] MEDS: Sodium Chloride 0.9% 1,000 ML IV SCH ×2 (12:05→22:11)
[2020-12-22] MEDS: cefTRIAXone 1 GM Vial IVPUSH SCH (12:10)
[2020-12-22] MEDS: Losartan 100 MG Tab PO SCH (12:35)
[2020-12-22] MEDS: Metoprolol Succinate 25 MG Tab.ER PO SCH (12:35)
[2020-12-22] MEDS: Potassium Gluconate (99 MG) 2 MEQ Tab PO SCH (12:35)
[2020-12-22] MEDS: Hydrochlorothiazide 25 MG Tab PO SCH (12:35)
[2020-12-22] MEDS: amLODIPine 10 MG Tab PO SCH (12:36)
[2020-12-22] MEDS: LORazepam 0.5 MG Tab PO SCH (12:36)
[2020-12-22] MEDS: atorvaSTATin 20 MG Tab PO SCH (19:29)
[2020-12-22] MEDS: Aspirin 81 MG Tab.EC PO SCH (19:29)
[2020-12-23 07:37] LABS: CHLORIDE,CL 104 mEq/L (98-106); SODIUM,NA 141 mEq/L (136-145)
[2020-12-23] MEDS: Aspirin 81 MG Tab.EC PO SCH ×2 (07:41→19:25)
[2020-12-23] MEDS: Losartan 100 MG Tab PO SCH (07:41)
[2020-12-23] MEDS: LORazepam 0.5 MG Tab PO SCH (07:41)
[2020-12-23] MEDS: Metoprolol Succinate 25 MG Tab.ER PO SCH (07:41)
[2020-12-23] MEDS: amLODIPine 10 MG Tab PO SCH (07:42)
[2020-12-23] MEDS: Hydrochlorothiazide 25 MG Tab PO SCH (07:42)
[2020-12-23] MEDS: Pantoprazole 40 MG Vial IV SCH ×2 (07:42→19:26)
[2020-12-23] MEDS: Potassium Gluconate (99 MG) 2 MEQ Tab PO SCH (07:42)
--- NOTE | 2020-12-23 11:06 | PN ---
DATE: 12/23/2020 S: Mr. Wiseman was admitted by Anna Condon for a cough, just not feeling well, elevated blood pressure, headache and some atypical chest pain. He has really done well since he has been here. He feels much better today. Has not had any further chest pain or headaches. Does feel like he still has a little bit of a cough and was on a Z-Per last week for such. His blood pressures have been still running elevated around 175 systolic. Otherwise, his vitals are fine. O: GENERAL: Darío is pleasant, alert, and cooperative. He appears in no distress HEENT: Grossly benign. NECK: Neck veins are flat. LUNGS: Actually clear without rales or rhonchi. There may be some very faint inspiratory and expiratory wheezing. CARDIAC: Tones are regular. ABDOMEN: Soft. EXTREMITIES: He has no peripheral edema. ASSESSMENT: 1. HYPERTENSION. 2. CHEST PAIN, RESOLVED. 3. BRONCHITIS. P: Darío is clinically doing much better. I am going to titrate up on his metoprolol and see if we can improve his pressures. He was started on Rocephin by Anna Condon for his bronchitis. He has finished a course of Zithromax last week. He is not coughing up any sputum. It is worthy to note that his EKG and cardiac enzymes remain stable. I am going to stop his telemetry, get him up and ambulating. We will increase his metoprolol and hopefully home by tomorrow. SHAMIR/CHAS /[id number]
[2020-12-23] MEDS: cefTRIAXone 1 GM Vial IVPUSH SCH (11:47)
[2020-12-23] MEDS ORDERED: cloNIDine 0.1 MG Tab PO ONE (16:15)
[2020-12-23] MEDS: atorvaSTATin 20 MG Tab PO SCH (19:25)
[2020-12-23] MEDS ORDERED: Enoxaparin 30 MG/0.3 ML Syringe SUBCUT SCH (20:00)
[2020-12-24] MEDS ORDERED: cloNIDine 0.1 MG Tab PO ONE (00:30)
[2020-12-24] MEDS: Pantoprazole 40 MG Vial IV SCH (07:51)
[2020-12-24] MEDS: Potassium Gluconate (99 MG) 2 MEQ Tab PO SCH (07:51)
[2020-12-24] MEDS: Aspirin 81 MG Tab.EC PO SCH (07:51)
[2020-12-24] MEDS: LORazepam 0.5 MG Tab PO SCH (07:51)
[2020-12-24] MEDS: Hydrochlorothiazide 25 MG Tab PO SCH (07:51)
[2020-12-24 07:52] VITALS: BP 161/80; PULSE 64
[2020-12-24] MEDS: amLODIPine 10 MG Tab PO SCH (07:52)
[2020-12-24] MEDS: Losartan 100 MG Tab PO SCH (07:52)
[2020-12-24] MEDS ORDERED: cloNIDine 0.1 MG Tab PO SCH (08:00)
[2020-12-24] MEDS ORDERED: Metoprolol Succinate 25 MG Tab.ER PO SCH (08:00)
--- NOTE | 2020-12-24 09:52 | DISCH ---
ADMISSION DIAGNOSES: 1. Atypical chest pain. 2. Acute renal insufficiency. DISCHARGE DIAGNOSIS: 1. ATYPICAL CHEST PAIN, RESOLVED. 2. ACUTE EXACERBATION CHRONIC RENAL INSUFFICIENCY, IMPROVED. 3. HYPERTENSION, IMPROVED. 4. BRONCHITIS, IMPROVED. HISTORY: The patient is an elderly gentleman who presented to [facility] with atypical chest pain on the left side, some complaints of not feeling right in his head, and some headaches. Ultimately, Anna did appropriate workup. CT of the head, chest x-ray, etc., were all normal. She actually had a CT scan of his chest looking for a PE and no pneumonia was found. He was ultimately admitted with elevated blood pressure and for monitoring due to his symptoms. HOSPITAL COURSE: The patient really did fine while here. He had almost complete resolution of any chest pain or headaches while he was here, still had a little bit of an infrequent cough, but his sats are fine and his lung sounds are clear throughout. His blood pressures went up and were elevated into the 180s and actually low 200s at a few times. We put him on a slightly higher dose of his Toprol and a b.i.d. dose of clonidine and his blood pressures are improved. He is 160/80 this morning. He is completely asymptomatic. He is ambulating around his room and appears to be in no distress. He has had no problems with intake and we elected to discharge him home and have followup as an outpatient for blood pressure control. COMPLICATIONS: During hospitalization were none. CONSULTATIONS: None. DISPOSITION: Discharged home. HODA /[id number]
== END 2020-12-24 11:50 | disposition home or self-care (01) | DRG 313 ==
LOC: CC.ED 07:35 → CC.MS 09:39 → UNDOADMIN 09:39 → CC.MS 10:40
PROVIDERS: ADMIT Physician Assistant Medical; ATTEND Family Medicine
DX: R07.89 Other chest pain (principal); N28.9 Disorder of kidney and ureter, unspecified; N18.9 Chronic kidney disease, unspecified; I10 Essential (primary) hypertension; J40 Bronchitis, not specified as acute or chronic; E78.00 Pure hypercholesterolemia, unspecified; E11.9 Type 2 diabetes mellitus without complications; Z90.49 Acquired absence of other specified parts of digestive tract; Z79.84 Long term (current) use of oral hypoglycemic drugs; Z79.4 Long term (current) use of insulin; Z95.0 Presence of cardiac pacemaker; Z79.899 Other long term (current) drug therapy; Z88.8 Allergy status to other drugs, medicaments and biological substances; Z88.2 Allergy status to sulfonamides; Z88.1 Allergy status to other antibiotic agents; Z79.82 Long term (current) use of aspirin
CPT/HCPCS: 36415; 70450; 71045; 71275; 80048; 80053; 81001; 82550; 82947; 83615; 83690; 83735; 84484; 85025; 85379; 85610; 85651; 85730; 86140; 93005; 93010; 99285-25; A9270-GY; C9113; J0696; J1650; J7030; Q9967

== ENCOUNTER 2022-06-22 14:21 | Emergency (ER) | payer MEDICARE ==
[2022-06-22 14:26] VITALS: BP 194/74; PULSE 65
== END 2022-06-22 16:00 | disposition home or self-care (01) ==
LOC: CC.ED 14:21
DX: M16.11 Unilateral primary osteoarthritis, right hip (principal); M25.561 Pain in right knee; E11.9 Type 2 diabetes mellitus without complications; E78.00 Pure hypercholesterolemia, unspecified; I10 Essential (primary) hypertension; Z95.0 Presence of cardiac pacemaker; Z88.1 Allergy status to other antibiotic agents; Z79.82 Long term (current) use of aspirin; Z79.899 Other long term (current) drug therapy; Z79.84 Long term (current) use of oral hypoglycemic drugs
CPT/HCPCS: 73560-RT; 99284